=== PATIENT | female | born 1970 | race Hispanic/Latino ===

== ENCOUNTER 2017-05-19 16:07 | Emergency (ER) | payer MEDICAID ==
[2017-05-19 16:38] LABS: BASOPHILS % (AUTO) 0.2 % (0.0-5.0); HEMATOCRIT 37.8 % (36-48); LYMPHOCYTES % (AUTO) 11.2 % (21.0-51.0); MEAN CORPUSCULAR HEMOGLOBIN 30.2 pg (27.0-33.0); MEAN CORPUSCULAR HGB CONC 34.7 g/dL (32.0-36.0); MEAN CORPUSCULAR VOLUME 87.1 fL (79-99); MONOCYTES % (AUTO) 3.9 % (3.0-13.0); NEUTROPHILS % (AUTO) 81.7 % (40.0-77.0); PLATELET COUNT (AUTO) 229 K/uL (130-400); RED BLOOD CELL COUNT(AUTO) 4.34 MIL/uL (4.00-5.50); RED CELL DISTRIBUTION WIDTH 14.6 % (11.0-15.5); WHITE BLOOD COUNT (AUTO) 4.8 K/uL (4.8-10.8)
[2017-05-19 16:46] LABS: CREATININE 0.8 mg/dL (0.5-1.5); POTASSIUM 3.4 mmol/L (3.5-5.1)
[2017-05-19 16:51] LABS: ALBUMIN 3.2 g/dL (3.5-5.0); BILIRUBIN,TOTAL 0.3 mg/dL (0.2-1.0); TOTAL PROTEIN, SERUM 6.3 g/dL (6.0-8.3)
[2017-05-19] MEDS ORDERED: MORPHINE SULFATE 2 MG/ML 1ML SYG ONE (17:13)
[2017-05-19] MEDS ORDERED: ONDANSETRON HCL MDV 20ML 2 MG/ML VIAL ONE (17:14)
[2017-05-19] MEDS ORDERED: FAMOTIDINE 20MG TAB 20 MG TAB ONE (17:21)
[2017-05-19] MEDS ORDERED: MAG HYDROX/AL HYDROX/SIMETH ES 30 ML SUSP UDCUP ONE (18:27)
[2017-05-19] MEDS ORDERED: DICYCLOMINE HCL 10 MG/ML 2ML AMP IM ONE (18:27)
[2017-05-19] MEDS ORDERED: LIDOCAINE HCL 2% VISCOUS 15 ML UDCUP ONE (18:28)
[2017-05-19 19:12] LABS: APPEARANCE,URINE SLIGHTLY CLOUDY (CLEAR); BILIRUBIN,URINE Negative (NEGATIVE); COLOR,URINE Yellow (YELLOW); GLUCOSE, URINE (UA) Negative (NEGATIVE); KETONES,URINE Negative (NEGATIVE); LEUKOCYTE ESTERASE ,URINE Trace (NEGATIVE); NITRATE,URINE Negative (NEGATIVE); OCCULT BLOOD,URINE Negative (NEGATIVE); PH,URINE >=9.0 (5.0-8.0); PROTEIN,URINE Negative (NEGATIVE); UROBILINOGEN,URINE 0.2 mg/dL (0.2-1.0)
[2017-05-19 19:40] LABS: AMORPHOUS SEDIMENT,UR Few /LPF (None Seen); BACTERIA,URINE Few /HPF (None Seen); RBC,URINE 0-1 /HPF (0-1); SQUAMOUS EPITHELIAL CELL,UR Few /HPF (0-2)
== END 2017-05-19 20:22 | disposition home or self-care (01) ==
LOC: EDH 16:07
DX: R10.32 Left lower quadrant pain (principal); R19.7 Diarrhea, unspecified; R11.0 Nausea; I50.9 Heart failure, unspecified; K21.9 Gastro-esophageal reflux disease without esophagitis; G43.909 Migraine, unspecified, not intractable, without status migrainosus; J44.9 Chronic obstructive pulmonary disease, unspecified
CPT/HCPCS: 36415; 74021; 80053; 81001; 83690; 84484; 85025; 93005; 96372; 96374; 96375; 99285; J0500

== ENCOUNTER 2022-01-11 18:26 | Emergency (ER) | payer MEDICAID ==
[~2022-01-11] VITALS: Ht 162.6 cm; Wt 84.4 kg
[2022-01-11 19:02] LABS: BASOPHILS % (AUTO) 0.3 % (0.0-5.0); HEMATOCRIT 39.8 % (36-48); LYMPHOCYTES % (AUTO) 15.8 % (21.0-51.0); MEAN CORPUSCULAR HEMOGLOBIN 29.5 pg (27.0-33.0); MEAN CORPUSCULAR HGB CONC 33.2 g/dL (32.0-36.0); MONOCYTES % (AUTO) 6.2 % (3.0-13.0); NEUTROPHILS % (AUTO) 76.4 % (40.0-77.0); PLATELET COUNT (AUTO) 229 K/uL (130-400); RED BLOOD CELL COUNT(AUTO) 4.47 MIL/uL (4.00-5.50); RED CELL DISTRIBUTION WIDTH 13.2 % (11.0-15.5); WHITE BLOOD COUNT (AUTO) 5.8 K/uL (4.8-10.8)
[2022-01-11 19:10] LABS: CREATININE 0.6 mg/dL (0.5-1.5); POTASSIUM 3.6 mmol/L (3.5-5.1)
[2022-01-11 19:15] LABS: ALBUMIN 3.9 g/dL (3.5-5.0); TOTAL PROTEIN, SERUM 7.7 g/dL (6.0-8.3)
[2022-01-11] MEDS ORDERED: HYDR-3421 PO (20:02)
[2022-01-11 20:05] LABS: AMPHET/METH SCREEN,URINE NEGATIVE (NEGATIVE); BARBITURATE SCREEN, URINE NEGATIVE (NEGATIVE); BENZODIAZEPINES SCREEN,URINE NEGATIVE (NEGATIVE); CANNABINOID SCREEN,URINE NEGATIVE (NEGATIVE); COCAINE SCREEN,URINE NEGATIVE (NEGATIVE); OPIATE SCREEN,URINE NEGATIVE (NEGATIVE); PHENCYCLIDINE SCREEN,URINE NEGATIVE (NEGATIVE)
[2022-01-11 20:07] VITALS: BP 121/83
== END 2022-01-11 20:15 | disposition home or self-care (01) ==
LOC: EDH 18:26
DX: F41.9 Anxiety disorder, unspecified (principal)
CPT/HCPCS: 36415; 71045; 80053; 80305; 84484; 85025; 93005

== ENCOUNTER 2025-01-15 19:10 | Emergency (ER) | payer MEDICAID ==
[~2025-01-15] VITALS: Ht 157.5 cm; Wt 90.7 kg
[~2025-01-15 19:10] MED LIST: HYDR-3421 PO
[2025-01-15] MEDS ORDERED: NITROGLYCERIN 0.4 MG SL TAB SL PRN (19:30)
--- NOTE | 2025-01-15 19:32 | ERN ---
ED Note History of Present Illness Stated Complaint: INTERMITTENT CP X 3 DAYS, WORSE X 1 HR W SOB Chief Complaint: Chest Pain Time Seen by MD: 19:28 Dictation: PATIENT IS A 54-YEAR-OLD FEMALE COMING IN VIA EMS WITH COMPLAINTS OF SEVERE INTRA SCAPULAR PAIN SHE HAS HAD FOR THREE DAYS. SHE STATES THE 1ST DAY SHE DID NOT DO ANYTHING ABOUT IT SHE JUST WAS HOPING IT WOULD GO AWAY. SHE SAID STARTING ON THE 2ND DAY SHE STARTED HAVING SUBSTERNAL CHEST PAIN WITH THE BACK PAIN. SHE STATES THEN YESTERDAY SHE CONTINUED WITH THE PAIN AND IT GOT WORSE STARTING AT 10:00 IN THE MORNING STABBING IN NATURE. SHE SAID SHE DID NOT GO SEE HER PRIMARY CARE DOCTOR BECAUSE SHE THOUGHT IT MIGHT GO AWAY ON-CALL.. SHE IS NOW ALSO COMPLAINING BESIDES THAT IS SUBSTERNAL CHEST PAIN AND BACK PAIN OF LEFT UPPER QUADRANT PAIN THAT SHE HAS HAD INTERMITTENTLY BEFORE IN THE PAST. STATES HE HAD SEEN HER PRIMARY CARE DOCTOR MORE THAN A WEEK AGO FOR THE SIMILAR PAIN AND HE STARTED ON ANTIBIOTICS FOR A BACTERIAL INFECTION, SHE STOPPED THOSE ANTIBIOTICS BECAUSE SHE WAS FEELING BETTER. SHE ALSO RELATES A STORY THAT SHE WAS AT [facility] COUPLE OF WEEKS AGO AFTER A FALL AND WAS UNABLE TO MOVE HER LEFT SIDE FOR SEVEN DAYS. SHE SAID SHE IS NOT FOLLOW BACK UP WITH HER DOCTOR SINCE THAT DEFICIT. SHE STATES SHE DOES HAVE A HISTORY OF ANGINA, NO SURVEYING OR SPATIAL SCIENCE TECHNICIAN'S. Allergies: Coded Allergies: No Known Allergies (Unverified Allergy, Unknown, 01/11/22) Home Meds Active Scripts Nitrofurantoin Monohyd/M-Cryst (Macrobid 100 mg Capsule) 100 Mg Capsule, 1 CAP PO BID for 5 Days, #10 CAP 0 Refills Prov:ODALYS RUDOLPH WASHCOAT WIPER 01/15/25 Hydroxyzine HCl (Hydroxyzine HCl) 25 Mg Tablet, 25 MG PO every 6 hours for anxiety, #40 TAB Prov:DIMITRI JUAREZ RAZOR GRINDER 01/11/22 Past Medical History Past Medical History: No Pertinent History Surgical History: None History: Not Applicable RN Note Reviewed/Agreed w/PFSH: Yes Review of System Dictation CONSTITUTIONAL: NEGATIVE EXCEPT FOR HPI HEAD/FACE: NEGATIVE EXCEPT FOR HPI EENT: NEGATIVE EXCEPT FOR HPI RESPIRATORY: NEGATIVE EXCEPT FOR HP INTRASCAPULAR PAIN WITH SUBSTERNAL CHEST PAIN GASTROINTESTINAL/ABDOMINAL: NEGATIVE EXCEPT FOR HPI LEFT UPPER QUADRANT PAIN GENITOURINARY: NEGATIVE EXCEPT FOR HPI MUSCULOSKELETAL: NEGATIVE EXCEPT FOR HPI INTEGUMENTARY: NEGATIVE EXCEPT FOR HPI NEUROLOGICAL/PSYCH: NEGATIVE EXCEPT FOR HPI HEMATOLOGIC/LYMPHATIC: NEGATIVE EXCEPT FOR HPI ALL SYSTEMS NEGATIVE, EXCEPT NOTED ABOVE. 13 POINT REVIEW OF SYSTEMS ASSESSED AND ALL NEGATIVE EXCEPT FOR ABOVE. Initial Vital Sign VS Vital Signs Date Time Temp Pulse Resp B/P (MAP) Pulse Ox O2 Delivery O2 Flow Rate FiO2 01/15/25 19:12 99.1 89 26 116/85 99 Room Air 0 01/15/25 20:01 28 Physical Exam Dictation VITAL SIGNS REVIEWED GENERAL APPEARANCE: ALERT, ORIENTED X 3, MODERATE ACUTE DISTRESS, WELL DEVELOPED, NOURISHED. HEAD AND FACE: NON-TRAUMATIC. EYES: PERRL, PINK CONJUNCTIVAS, EYELID NO TRAUMA, ANTERIOR CHAMBER WITH ARCUS SENILIS. EARS: PINNAS INTACT AND NO SIGNS OF TRAUMA OR ERYTHEMA EAR CANALS CLEAR AND NO DISCHARGE TM NO ERYTHEMA NOSE: NO DISCHARGE, NO BLEEDING. OROPHARYNX: MOUTH NORMAL, TONGUE PINK, PHARYNX CLEAR,NO ERYTHEMA, TONSILS NO EXUDATES, NO ABSCESSES NOTED, MUCOUS MEMBRANE MOIST NECK: SUPPLE, NON-TENDER, NO THYROMEGALY, NO MASSES, NO JVD, NO BRUITS BREAST:DEFERRED CHEST:NO TENDERNESS, NO CREPITUS, NO PARADOXICAL MOVEMENT, NO RETRACTIONS LUNGS:CLEAR, WELL-VENTILATED, SYMMETRIC, NO RALES, NO WHEEZING, NO RHONCHI, NO STRIDOR, GOOD BREATH SOUNDS BILATERALLY HEART: REGULAR RATE, REGULAR RHYTHM, NO MURMUR, NO GALLOPS VASCULAR: NO PERIPHERAL EDEMA, ABDOMEN: SOFT, POSITIVE BOWEL SOUNDS, NONDISTENDED, NO GUARDING, MODERATE LEFT UPPER QUADRANT PAIN WITH PALPATION. RECTAL: DEFERRED GENITAL: DEFERRED NEUROLOGICAL: NORMAL SPEECH, MOTOR FUNCTION INTACT, SENSORY FUNCTION INTACT MUSCULOSKELETAL: NECK NONTENDER, FULL RANGE OF MOTION, BACK NONTENDER, FULL RANGE OF MOTION, EXTREMITIES: NONTENDER, FULL RANGE OF MOTION SKIN: COLOR PINK, DRY, NO TURGOR, NO RASH, NO LACERATIONS, NO ABRASIONS, NO CONTUSIONS. LYMPHATIC: DEFERRED Results (Laboratory/Radiology) Laboratory/Radiology Laboratory Tests Test 01/15/25 19:45 01/15/25 21:00 01/15/25 21:08 White Blood Count 6.3 K/uL (4.8-10.8) Red Blood Count 4.41 MIL/uL (4.00-5.50) Hemoglobin 12.8 g/dL (12.0-16.0) Hematocrit 38.8 % (36-48) Mean Corpuscular Volume 88.0 fL (79-99) Mean Corpuscular Hemoglobin 29.0 pg (27.0-33.0) Mean Corpuscular Hemoglobin Concent 33.0 g/dL (32.0-36.0) Red Cell Distribution Width 13.2 % (11.0-15.5) Platelet Count 279 K/uL (130-400) Mean Platelet Volume 9.4 fL (7.5-10.5) Immature Granulocyte % (Auto) 0.2 % (0-1) Neutrophils (%) (Auto) 67.2 % (40.0-77.0) Lymphocytes (%) (Auto) 23.9 % (21.0-51.0) Monocytes (%) (Auto) 7.0 % (3.0-13.0) Eosinophils (%) (Auto) 1.4 % (0.0-8.0) Basophils (%) (Auto) 0.3 % (0.0-5.0) Neutrophils # (Auto) 4.2 K/uL (1.8-7.7) Lymphocytes # (Auto) 1.5 K/uL (1.0-4.8) Monocytes # (Auto) 0.4 K/uL (0.1-1.0) Eosinophils # (Auto) 0.09 K/uL (0.00-0.70) Basophils # (Auto) 0.02 K/uL (0.00-0.20) Absolute Immature Granulocyte (auto 0.01 K/uL (0-1) Nucleated Red Blood Cells 0.0 % (0.0-0.19) Sodium Level 139 mmol/L (136-145) Potassium Level 3.3 mmol/L (3.5-5.1) L Chloride Level 102 mmol/L (101-111) Carbon Dioxide Level 26 mmol/L (21-32) Blood Urea Nitrogen 10 mg/dL (7-18) Creatinine 0.7 mg/dL (0.5-1.0) Glomerular Filtration Rate Calc 102 mL/min (>90) Random Glucose 101 mg/dL (70-105) Total Calcium 9.5 mg/dL (8.5-10.1) Magnesium Level 2.20 mg/dL (1.80-2.40) Troponin I High Sensitivity < 4 ng/L (4-50) L < 4 ng/L (4-50) L Lipase 33 U/L (16-77) Urine Color LIGHT-YELLOW (YELLOW) Urine Appearance CLOUDY (CLEAR) H Urine pH 7.5 (5.0-8.0) Urine Specific [place] 1.012 (1.001-1.031) Urine Protein NEGATIVE mg/dL (NEGATIVE) Urine Glucose (UA) NEGATIVE mg/dL (NEGATIVE) Urine Ketones NEGATIVE mg/dL (NEGATIVE) Urine Occult Blood NEGATIVE (NEGATIVE) Urine Nitrate NEGATIVE (NEGATIVE) Urine Bilirubin NEGATIVE mg/dL (NEGATIVE) Urine Urobilinogen 0.2 mg/dL (0.2-1.0) Urine Leukocyte Esterase 75 Gloria/uL (NEGATIVE) H Urine RBC 2-5 /HPF (0-1) H Urine WBC 6-10 /HPF (0-1) H Urine Squamous Epithelial Cells RARE /HPF (0-2) Urine Amorphous Crystals (Auto) RARE /LPF (None Seen) Urine Bacteria RARE /HPF (None Seen) Urine Opiates Screen POSITIVE (NEGATIVE) H Urine Barbiturates Screen NEGATIVE (NEGATIVE) Urine Phencyclidine Screen NEGATIVE (NEGATIVE) Urine Amphetamines Screen NEGATIVE (NEGATIVE) Urine Benzodiazepines Screen NEGATIVE (NEGATIVE) Urine Cocaine Screen NEGATIVE (NEGATIVE) Urine Marijuana (THC) Screen NEGATIVE (NEGATIVE) REASON: CP ORDERING PHYSICIAN: AMINA CAM PROCEDURE: CXR1VW - CHEST 1VW EXAM: CR Chest, 1 View. CLINICAL HISTORY: COMPARISON: None provided. FINDINGS: LUNGS: The lungs show no infiltrate or other acute finding. PLEURAL SPACES: No pleural effusion or pneumothorax. MEDIASTINUM: Cardiac size and mediastinal contours within normal limits. BONES: No acute osseous abnormality. IMPRESSION: No acute cardiopulmonary pathology is evident. /[place] Labs Reviewed?: Yes EKG: (+) NSR EKG Comment: 193/EKG NORMAL SINUS RHYTHM/HEART RATE 73/AXIS NORMAL/NO ECTOPY ED Course ED Course Orders Procedure Category Date Status Time Cbc With Differential LAB 01/15/25 Complete 19: Basic Metabolic Panel LAB 01/15/25 Complete :25 Troponin I High LAB 01/15/25 Complete Sensitivity 19:25 Magnesium LAB 01/15/25 Complete 19:25 12 Lead Ekg Tracing- EKG 01/15/25 Complete Technical 19:25 Chest 1vw RAD 01/15/25 Resulted 19:25 Lipase LAB 01/15/25 Complete 19:28 Nitroglycerin 0.4mg PHA 01/15/25 In Process Sl Tab (Nitrostat) 19:30 Morphine 4mg Syg PHA 01/15/25 Complete (Morphine 4mg Syg) 19:30 Ondansetron 4mg Inj PHA 01/15/25 Complete (Zofran 4mg Inj) 19:30 Aspirin 325mg Tab PHA 01/15/25 Complete (Aspirin 325mg Tab) 19:30 Troponin I High LAB 01/15/25 Complete Sensitivity 20:48 Urinalysis Profile LAB 01/15/25 Complete 21:12 Drug Screen Urine LAB 01/15/25 Complete 21:12 Potassium Bicarb/Cit PHA 01/15/25 Complete Ac 25meq (K-Lyte Ta 21:30 Culture Urine ZENOBIA 01/15/25 Logged 21:42 Current Medications Medications (Trade) Dose Ordered Sig/Michelle Route PRN Reason Start Time Stop Time Status Last Admin Dose Admin Aspirin (Aspirin 325mg Tab) 325 mg ONCE ONCE PO 01/15/25 19:30 01/15/25 19:34 DC 01/15/25 19:53 Morphine Sulfate (morPHINE 4MG SYG) 4 mg ONCE ONCE IVP 01/15/25 19:30 01/15/25 19:34 DC 01/15/25 19:53 Nitroglycerin (Nitrostat) 0.4 mg Q5M PRN SL CHEST PAIN 01/15/25 19:30 Ondansetron HCl (zoFRAN 4MG INJ) 4 mg ONCE ONCE IVP 01/15/25 19:30 01/15/25 19:34 DC 01/15/25 19:53 Potassium Bicarbonate (K-Lyte Tablet Eff 25 Meq Tablet.eff) 25 meq ONCE ONCE PO 01/15/25 21:30 01/15/25 21:31 DC 01/15/25 21:37 Vital Signs Date Time Temp Pulse Resp B/P (MAP) Pulse Ox O2 Delivery O2 Flow Rate FiO2 01/15/25 21:11 70 18 132/80 96 Room Air* 0 21 01/15/25 20:01 76 18 120/75 100 Nasal Cannula* 2 28 01/15/25 19:12 99.1 89 26 116/85 99 Room Air 0 HEART Score Response (Comments) Value History: Low suspicion (0) 0 EKG: Normal 0 Age: 45-65yrs (+1) 1 Risk Factors: No known risk factors (0) 0 Initial Troponin: Normal limit (0) 0 Total 1 Medical Decision Making MDM The patient is a 54-year-old female no significant past medical history who presents to the emergency department with complaints of chest pain onset three days ago. Patient also reported left upper abdominal pain. Patient reports having similar symptoms for over a year. CBC showed no leukocytosis, no anemia, chemistry showed mild hypokalemia which was replaced, negative lipase, x-ray showed no acute pathology. Troponins were negative x2, EKG was normal sinus rhythm. Low risk for cardiac etiology. For mild leukocyte esterase. Patient will be treated as outpatient for UTI.. On physical exam patient is in no acute distress, nontoxic appearance. Patient is seen on her phone in no apparent distress. Stable vital signs We will be discharged patient to follow up with PCP. Differential diagnosis: Gastritis, pancreatitis, ACS, costochondritis Need for hospitalization: Patient does not meet criteria for hospitalization. There are no social concerns with this patient. DX & DISP Disposition: Discharge Departure Impression: Primary Impression: Chest pain Additional Impression: UTI (urinary tract infection) Condition: Stable Scripts Nitrofurantoin Monohyd/M-Cryst (Macrobid 100 mg Capsule) 100 Mg Capsule 1 CAP PO BID for 5 Days, #10 CAP 0 Refills Prov: ODALYS RUDOLPH WASHCOAT WIPER 01/15/25 Additional Instructions: Follow up with your primary doctor in 1-2 days. Take your medications as prescribed. If anything worsens please return to ER. FOLLOW-UP WITH PRIMARY CARE PROVIDER IN 1 TO 2 DAYS. TAKE MEDICATIONS DIRECTED HERE IN THE EMERGENCY ROOM. OKAY TO CONTINUE HOME MEDICATIONS UNLESS OTHERWISE DISCUSSED DURING YOUR VISIT IN THE EMERGENCY ROOM TODAY. RETURN TO YOUR NEAREST EMERGENCY ROOM IF SYMPTOMS WORSEN OR IF THERE IS NO IMPROVEMENT. CALL 911 IF YOU NEED IMMEDIATE ASSISTANCE. TAKE TYLENOL [id number] NEEDED AND IF NO CONTRAINDICATIONS ARE PRESENT. INCREASE ORAL HYDRATION. A WOUND CULTURE OR URINE CULTURE WAS ORDERED HERE IN THE EMERGENCY ROOM DEPARTMENT PLEASE FOLLOW-UP WITH PRIMARY CARE PROVIDER AND ADVISE THEM TO GET REPEAT PORTS FROM OUR FACILITY. IF YOU HAD ANY RICKEY WRAP/SPLINTS THAT WERE APPLIED HERE, PLEASE DO NOT REMOVE THEM UNTIL YOU SEE YOUR PRIMARY CARE OR SPECIALTY. Referrals: PAPITO BUCKLEY MD (PCP) Time of Disposition: 22:09 I have reviewed the case, and I agree with, Diagnosis and Plan AMINA CAM WASHCOAT WIPER Jan 15, 2025 19:32 ODALYS RUDOLPH WASHCOAT WIPER Jan 15, 2025 22:09
--- NOTE | 2025-01-15 19:43 | EKG ---
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
[2025-01-15] MEDS: ASPIRIN 325MG TAB PO ONE (19:53)
[2025-01-15 20:14] LABS: IMMATURE GRANULOCYTE ABSOLUTE 0.01 K/uL (0-1); NUCLEATED RED BLOOD CELLS 0.0 % (0.0-0.19); PLATELET COUNT (AUTO) 279 K/uL (130-400); RED BLOOD CELL COUNT(AUTO) 4.41 MIL/uL (4.00-5.50); RED CELL DISTRIBUTION WIDTH 13.2 % (11.0-15.5); WHITE BLOOD COUNT (AUTO) 6.3 K/uL (4.8-10.8)
[2025-01-15 20:23] LABS: CREATININE 0.7 mg/dL (0.5-1.0); GLOMERULAR FILTR. RATE CALC 102.0 mL/min (>90); GLUCOSE,RANDOM 101.0 mg/dL (70-105); SODIUM SERUM 139.0 mmol/L (136-145); UREA NITROGEN, BLOOD 10.0 mg/dL (7-18)
--- NOTE | 2025-01-15 20:25 | HMCIMG ---
EXAM: CR Chest, 1 View. CLINICAL HISTORY: CP COMPARISON: None provided. FINDINGS: LUNGS: The lungs show no infiltrate or other acute finding. PLEURAL SPACES: No pleural effusion or pneumothorax. MEDIASTINUM: Cardiac size and mediastinal contours within normal limits. BONES: No acute osseous abnormality. IMPRESSION: No acute cardiopulmonary pathology is evident. /[place]
[2025-01-15 21:37] LABS: APPEARANCE,URINE CLOUDY (CLEAR); GLUCOSE, URINE (UA) NEGATIVE (NEGATIVE); LEUKOCYTE ESTERASE ,URINE 75 Leu/uL (NEGATIVE); NITRATE,URINE NEGATIVE (NEGATIVE); OCCULT BLOOD,URINE NEGATIVE (NEGATIVE)
[2025-01-15 21:41] LABS: ADD UA MICROSCOPIC YES
[2025-01-15 21:45] LABS: AMPHET/METH SCREEN,URINE NEGATIVE (NEGATIVE); BARBITURATE SCREEN, URINE NEGATIVE (NEGATIVE); CANNABINOID SCREEN,URINE NEGATIVE (NEGATIVE); COCAINE SCREEN,URINE NEGATIVE (NEGATIVE)
[2025-01-15 21:46] LABS: SQUAMOUS EPITHELIAL CELL,UR RARE /HPF (0-2)
[2025-01-15] MEDS ORDERED: NITR100C4 PO (22:09)
[2025-01-15 22:17] VITALS: BP 131/84; PULSE 65; RESP 18; TEMP 98.6; O2SAT 99
== END 2025-01-15 22:22 | disposition home or self-care (01) ==
LOC: EDH 19:10
DX: R07.2 Precordial pain (principal); N39.0 Urinary tract infection, site not specified; R06.02 Shortness of breath
CPT/HCPCS: 99285; 96374; 71045; 96375; 83735; 84484 ×2; 80048; 80305; 83690; 85025; 87086; 81001; 36415; 93005; J2405; J2270